=== PATIENT | male | born 1945 | race Caucasian/White ===

== ENCOUNTER 2019-02-27 22:52 | Emergency (ER) | payer MEDICARE, OTHER ==
--- NOTE | 2019-02-27 23:00 | Emergency Department Record ---
History of Present Illness - General Stated Complaint: CHEST PAIN BETTER AFTER NITRO Time Seen by Provider: 02/27/19 22:54 Source: Patient Mode of Arrival: Ambulatory Limitations: No limitations - History of Present Illness Initial Comments: 73 yo male presents with chest pain. The discomfort started this evening around 10pm while sitting at the computer. He took two of his nitroglycerin to resolve the pain. The discomfort lasted 15 minutes total. He states it started as pressure like gas in the epigastrium that when to the chest. After 5 minutes he took the first nitro then the second. He has been symptom free since then. He has otherwise been in his normal health without issues recently. He is currently asymptomatic. 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 This is the first chest pain since then. He denies shortness of breath. He is compliant with all his medications. 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 His chest pain remains resolved on arrival. MD Complaint: Chest pain -: Hour(s) Onset: During rest Pain Location: Substernal Pain Radiation: None Severity: Moderate Quality: Aching, Tightness Consistency: Constant, Now resolved Improves With: Other (Resolved with two nitro) Worsens With: Nothing Context: Other (Recent AR) Other Symptoms: Other Treatments Prior to Arrival: None - Related Data Home Medications Medication Instructions Recorded Confirmed Last Taken Clopidogrel Bisulfate [Plavix] 75 mg PO DAILY 02/27/19 02/27/19 Unknown Metoprolol Tartrate 100 mg PO DAILY 02/27/19 02/27/19 Unknown Allergies Allergy/AdvReac Type Severity Reaction Status Date / Time No Known Drug Allergies Allergy Verified 05/04/16 05:14 Review of Systems Constitutional: Denies: Chills, Fever, Malaise, Weakness Eyes: Denies: Eye discharge ENT: Denies: Congestion, Throat pain Respiratory: Denies: Cough Cardiovascular: Reports: Chest pain. Denies: Dyspnea on exertion, Edema, Palpitations, Syncope Endocrine: Denies: Fatigue, Polydipsia, Polyuria Gastrointestinal: Denies: Abdominal pain, Diarrhea, Nausea, Vomiting Genitourinary: Denies: Dysuria, Frequency, Hematuria Musculoskeletal: Denies: Arthralgia, Back pain, Joint swelling, Myalgia Skin: Denies: Rash Neurological: Denies: Headache Psychiatric: Denies: Anxiety Hematological/Lymphatic: Denies: Easy bleeding, Easy bruising Past Medical History - SOCIAL HISTORY Smoking Status: Former smoker Drug Use: None - RESPIRATORY Hx Respiratory Disorders: No Hx Asthma: Yes Hx Sleep Apnea: Yes Hx of CPAP: Yes - CARDIOVASCULAR Hx Cardio Disorders: No Hx Hypertension: Yes - NEURO Hx Neuro Disorders: No 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) - GI Hx GI Disorders: No Hx Reflux: Yes Hx Hiatal Hernia: Yes - Hx Genitourinary Disorders: No Hx Bladder Problem: Yes (urinary frequency) - ENDOCRINE Hx Endocrine Disorders: Yes Hx Diabetes: Yes (3-4 years) Hx Thyroid Disease: No - MUSCULOSKELETAL Hx Musculoskeletal Disorders: Yes Hx Arthritis: Yes (generalized) Hx Gout: Yes - PSYCH Hx Psych Problems: No - HEMATOLOGY/ONCOLOGY Hx Hematology/Oncology Disorders: No Family Medical History Hx Cancer: Mother, Brother/Sister Hx Diabetes: Brother/Sister Hx Heart Disease: Brother/Sister Physical Exam - General General Appearance: Alert, Oriented x3, Cooperative, No acute distress Limitations: No limitations - Head Head exam: Atraumatic, Normocephalic, Normal inspection - Eye Eye exam: Normal appearance, PERRL. negative: Conjunctival injection, Scleral icterus - ENT ENT exam: Normal exam Ear exam: Normal external inspection Nasal Exam: Normal inspection Mouth exam: Normal external inspection - Neck Neck exam: Normal inspection - Respiratory Respiratory exam: Normal lung sounds bilaterally. negative: Accessory muscle use, Decreased breath sounds, Respiratory distress, Rhonchi, Stridor, Wheezes - Cardiovascular Cardiovascular Exam: Regular rate, Normal rhythm, Normal heart sounds Peripheral Pulses: 2+: Radial (R), Radial (L) - GI/Abdominal GI/Abdominal exam: Soft. negative: Tenderness - Rectal Rectal exam: Deferred - exam: Deferred - Extremities Extremities exam: Normal inspection, Full ROM, Normal capillary refill. negative: Tenderness - Back Back exam: Denies: CVA tenderness (R), CVA tenderness (L) - Neurological Neurological exam: Alert, Oriented X3 - Psychiatric Psychiatric exam: Normal affect, Normal mood. negative: Agitated, Anxious - Skin Skin exam: Dry, Intact, Normal color, Warm Course - Reevaluation(s) Reevaluation #1: EKG #1: 22:58 Rate: 74 Rhythm: sinus [place]: L Intervals: [place] [address] ST segments: normal Prior: 05/16/16 no significant changes The patient remains chest pain free 02/27/19 23:01 02/27/19 23:40 The labs were reviewed Normal Troponin The CBC normal Mild increase in LFTs. He has had his gallbladder removed in the past 02/27/19 23:48 [facility] was called to discuss with [facility] 02/27/19 23:56 Dr Ram of [facility] called back. We discussed the case. He agrees with transfer for cardiology evaluation with the symptoms. The patient was notified Medical Decision Making - Lab Data Result diagrams: 02/27/19 23:02 02/27/19 23:02 Disposition Disposition: Transfer Clinical Impression: Chest discomfort Disposition: Acute Care Hospital Transfer Transfer To: [facility] Reason For Transfer: Chest Pain Accepting Physician: Leanna Time Discussed w/Accepting Physician: 23:55 Condition: (2) Stable Forms: Patient Portal Access Time of Disposition: 23:55 Quality - Quality Measures Quality Measures: N/A - Blood Pressure Screening Does Patient Have Any of the Following: No Blood Pressure Classification: Pre-Hypertensive BP Reading Systolic Measurement: 123 Diastolic Measurement: 73 Screening for High Blood Pressure: < Pre-Hypertensive BP, F/U Documented > [G8950] Pre-Hypertensive Follow-up Interventions: Referral to alternative/primary care provider.
[2019-02-27] MEDS ORDERED: ASPIRIN 81 MG CHEWABLE TABLET PO ONE (23:01)
[2019-02-27 23:10] LABS: ABSOLUTE NEUTROPHIL COUNT 4.92; BASO % 0.8 % (0-6); EOS % 8.5 % (0-6); GRAN % 47.3 % (47-80); HEMATOCRIT 45.1 % (42.0-52.0); HEMOGLOBIN 15.1 gm/dl (14.0-18.0); LYMPH % 34.4 % (16-45); MEAN CELL VOLUME 91.1 fl (81-97); MEAN CORPUSCULAR HEMOGLOBIN 30.5 pg (27-33); MEAN CORPUSCULAR HGB CONC 33.5 g/dl (32-36); MEAN PLATELET VOLUME 10.3 fl (7.4-10.4); PLATELET COUNT 279 K/uL (130-400); RED BLOOD COUNT 4.95 M/uL (4.40-5.70); RED CELL DISTRIBUTION WIDTH 13.9 % (11.5-14.5); WHITE BLOOD COUNT W/O DIFF 10.4 K/uL (4.2-12.2)
[2019-02-27 23:19] LABS: BLOOD UREA NITROGEN 19 mg/dL (8-23); CREATININE 1.2 mg/dL (0.7-1.2); EST GLOMERULAR FILTRATION RATE > 60 mL/min
[2019-02-27 23:20] LABS: TOTAL PROTEIN 7.7 g/dL (6.6-8.7)
[2019-02-27 23:22] LABS: GLUCOSE,RANDOM 138 mg/dL (74-109)
[2019-02-27 23:24] LABS: ALT/SGPT 48 U/L (<41)
[2019-02-27 23:25] LABS: ALB/GLOB RATIO 1.3 (1.1-1.8); ALBUMIN 4.3 g/dL (4.0-5.0); ALKALINE PHOSPHATASE 205 U/L (40-129); AST/SGOT 76 U/L (10.0-50.0)
[2019-02-27 23:37] LABS: PARTIAL THROMBOPLASTIN TIME 26.6 SECONDS (24.5-39.1); PROTHROMBIN TIME (PATIENT) 10.5 SECONDS (9.5-12.1)
--- NOTE | 2019-03-01 00:16 | RADIOLOGY REPORT ---
EXAM: CHEST 2 VIEWS HISTORY: CHEST PAIN. TECHNIQUE: PA and lateral upright views of the chest were obtained. COMPARISON: 05/15/2016. FINDINGS: The heart, mediastinum, and pulmonary vasculature are normal. There is stable linear scarring at the lung bases. There are no acute infiltrates or effusion. There is no pneumothorax. Degenerative changes are present within the spine. IMPRESSION: STABLE CHEST WITH NO ACUTE PROCESS IDENTIFIED. J[facility]BER: [id number] [facility]
== END 2019-02-28 01:36 | disposition short-term general hospital (02) ==
LOC: ER 22:52
DX: R07.89 Other chest pain (principal); R10.13 Epigastric pain; I25.2 Old myocardial infarction; Z87.891 Personal history of nicotine dependence
CPT/HCPCS: 71046; 80053; 84484; 85025; 85610; 85730; 93005; 93010; 99285